=== PATIENT | female | born 1975 | race Caucasian/White ===

== ENCOUNTER → 2020-03-04 | Outpatient (CLI) | payer BC ==
[2020-03-04 18:50] LABS: BASOPHILS % 0.9 % (0.0-2.0); EOSINOPHILS % 1.4 % (0.0-5.0); HEMATOCRIT. 39.3 % (36.0-48.0); LYMPHOCYTES % 28.7 % (20.0-50.0); MEAN CORPUSCULAR HEMOGLOBIN 28.7 pg (28.0-32.0); MEAN CORPUSCULAR VOLUME 86.8 fL (81.0-99.0); MEAN PLATELET VOLUME 7.5 fl (7.4-10.4); MONOCYTES % 6.6 % (2.0-8.0); NEUTROPHILS % 62.4 % (40.0-76.0); PLATELET 326 x1000/uL (130-400); RED BLOOD CELL COUNT 4.53 mill/uL (4.2-5.4)
[2020-03-04 18:56] LABS: CHLORIDE 105 mEq/L (98-107)
[2020-03-04 19:02] LABS: TOTAL IRON BINDING CAPACITY 356 ug/dL (250-450)
[2020-03-04 19:03] LABS: LDL CHOLESTEROL 111 mg/dL (5-100)
[2020-03-04 19:05] LABS: HDL CHOLESTEROL 37 mg/dL (40-59)
== END | disposition home or self-care (01) ==
LOC: LAB 16:57
PROVIDERS: ATTEND Internal Medicine
DX: M25.561 Pain in right knee (principal); I10 Essential (primary) hypertension; M19.90 Unspecified osteoarthritis, unspecified site
CPT/HCPCS: 36415; 73030; 73502; 73562; 80053; 80061; 83036; 83540; 83550; 84443; 85025

== ENCOUNTER → 2020-04-05 | Outpatient (CLI) | payer BC | END | disposition home or self-care (01) | LOC: MRI 09:33 | PROVIDERS: ATTEND Internal Medicine | DX: M75.81 Other shoulder lesions, right shoulder (principal) | CPT/HCPCS: 73221 ==

== ENCOUNTER 2021-07-16 14:50 | Emergency (ER) | payer BC ==
[~2021-07-16] VITALS: Ht 170.2 cm; Wt 79.5 kg
[2021-07-16 16:35] LABS: BASOPHILS % 0.4 % (0.0-2.0); EOSINOPHILS % 0.1 % (0.0-5.0); HEMATOCRIT. 36.9 % (36.0-48.0); HEMOGLOBIN. 12.1 g/dL (12.0-16.0); LYMPHOCYTES % 18.2 % (20.0-50.0); MEAN CORPUSCULAR HEMOGLOBIN 25.9 pg (28.0-32.0); MEAN CORPUSCULAR VOLUME 79.4 fL (81.0-99.0); MONOCYTES % 6.2 % (2.0-8.0); NEUTROPHILS % 75.1 % (40.0-76.0); PLATELET 222 x1000/uL (130-400); RED BLOOD CELL COUNT 4.65 mill/uL (4.2-5.4); RED CELL DISTRIBUTION WIDTH 15.4 % (11.6-14.6)
[2021-07-16 16:39] LABS: CHLORIDE 105 mEq/L (98-107)
[2021-07-16] MEDS ORDERED: SODIUM CHLORIDE 0.9% 500 ML IV ONE (16:45)
[2021-07-16 16:48] LABS: HCG SCREEN NEGATIVE
[2021-07-16] MEDS ORDERED: AZIT500T8 MT (19:42)
[2021-07-16 20:00] VITALS: BP 124/82
[2021-07-16] MEDS ORDERED: IOHEXOL-350 100 ML BOTTLE ONE (23:11)
== END 2021-07-16 20:30 | disposition home or self-care (01) ==
LOC: ER 14:50
DX: U07.1 COVID-19 (principal); J18.9 Pneumonia, unspecified organism; Z88.2 Allergy status to sulfonamides; R05.9 Cough, unspecified
CPT/HCPCS: 36415; 71045; 71275; 80053; 83690; 83880; 84484; 84703; 85025; 85379; 99285; Q9967